=== PATIENT | male | born 1980 | race Caucasian/White ===

== ENCOUNTER 2018-09-16 12:33 | Emergency (ER) | payer MEDICAID ==
[~2018-09-16] VITALS: Ht 167.6 cm; Wt 73.1 kg
[~2018-09-16 12:33] MED LIST: CIPR500T4 PO; IBUP-1542 PO
[2018-09-16 12:39] VITALS: BP 114/74; PULSE 75; RESP 20; Ht 167.6 cm; Wt 73.1 kg
--- NOTE | 2018-09-16 13:12 | ERD ---
ER Documentation Chief Complaint Chief Complaint L plantar foot pain d/t puncture by needle HPI 37-year-old male with no reported past medical surgical history presents with complaint of pain to plantar surface of left foot. Patient states he was walking on his carpet at home when he thinks he stepped on a needle. He has partial portion of needle he stepped on with him in hand. There is a thin needle. Patient states his attempted to take out the needle is unsure if she was successful or not. Patient still having pain to area this feels that he still has part of the needle at the bottom of his foot. He is requesting x- rays. He otherwise without complaint denying paresthesias or numbness of the affected limb. ROS All systems reviewed and are negative except as per history of present illness. Medications Home Meds Active Scripts Ciprofloxacin Hcl* (Ciprofloxacin Hcl*) 500 Mg Tablet, 500 MG PO BID for 10 Days, TAB Prov:JAQUELINE GOLDEN PA-C 09/16/18 Ibuprofen* (Motrin*) 600 Mg Tab, 600 MG PO Q6, #30 TAB Prov:JAQUELINE GOLDEN PA-C 09/16/18 Allergies Allergies: Coded Allergies: No Known Allergy (Unverified , 09/16/18) FmHx Family History: No diabetes, No coronary disease, No other Physical Exam Vitals Vital Signs Date Temp Pulse Resp B/P (MAP) Pulse Ox O2 O2 Flow FiO2 Time Delivery Rate 09/16/18 97.9 75 20 114/74 98 12:39 (87) Physical Exam I have reviewed the triage vital signs. Const: Well nourished, well developed, appears stated age Eyes: PERRL, no conjunctival injection HENT: NCAT, Neck supple without meningismus CV: RRR, Warm, well-perfused extremities RESP: CTAB, Unlabored respiratory effort GI: soft, non-tender, non-distended, no masses MSK: No gross deformities appreciated Plantar surface of left foot with small wound, no obvious foreign object palpated, nonbleeding, wiggles all toes, SI LT throughout Skin: Warm, dry. No rashes Neuro: grossly non focal Psych: Appropriate mood and affect. Procedures/MDM 37-year-old male presents with possible foreign body/needle to plantar surface of left foot. ED course: X-ray of left foot Partial needle foreign body seen within the soft tissues plantar are to the base of the proximal phalanx of the left fourth toe. Given location of foreign body attempt at retrieval not made after discussion with attending. Patient advised to [facility] for further management and care. Will discharge with ciprofloxacin antibiotic for prophylactic coverage. DISPOSITION PLAN: We discussed follow up with the patient's primary care doctor within 24 to 48 hours. Patient counseled regarding my diagnostic impression and care plan. Prior to discharge all questions answered. Pt agrees with treatment plan and understands strict return precautions. Precautionary instructions provided including instructions to return to the ER if not improving or for any worsening or changing symptoms or concerns. Disclaimer: Inadvertent spelling and grammatical errors are likely due to EHR/dictation software use and do not reflect on the overall quality of patient care. Also, please note that the electronic time recorded on this note does not necessarily reflect the actual time of the patient encounter. Departure Diagnosis: Primary Impression: Foot pain Condition: Stable JAQUELINE GOLDEN PA-C Sep 16, 2018 13:12
== END 2018-09-16 14:33 | disposition home or self-care (01) ==
LOC: FTE 12:33
DX: S91.342A Puncture wound with foreign body, left foot, initial encounter (principal); W45.8XXA Other foreign body or object entering through skin, initial encounter; Y92.009 Unspecified place in unspecified non-institutional (private) residence as the place of occurrence of the external cause
CPT/HCPCS: 73630; Z7502